=== PATIENT | female | born 1955 | race Caucasian/White ===

== ENCOUNTER 2016-09-20 02:15 | Observation (INO) | payer OTHER ==
--- NOTE | 2016-09-20 02:25 | EDPHY ---
H & P HPI/ROS: HPI CHIEF COMPLAINT: Fall HISTORY OF PRESENT ILLNESS: this patient very pleasant 61-year-old female, she is visiting from [facility] she arrived here on she is staying at [employer], she was walking down the stairs to go get her book to go to bed, she did have 3 glasses of wine this evening, she slipped on the 4th or 5th stair from the bottom she was not wearing shoes that were hardwood stairs, she remember slipping and she remember falling she had head strike. Her witnessed this she they do say brief episode of LOC. She was slightly confused upon waking according to her . She has no chest pain or shortness of breath she denies syncope but does endorse LOC. She remembers the entire event. She denies biting her tongue bowel bladder constant was no seizure activity. She is not on any blood thinners. Past Medical History: Hypertension, anxiety, depression, sleep apnea, obesity, wears 2 L of oxygen with her CPAP machine at night. Past Surgical History: No recent surgical history Social History: Endorses daily alcohol use 3-4 glasses of wine per evening, denies drugs or tobacco, is here for on vacation and a conference Family History: noncontributory ROS REVIEW OF SYSTEMS: A comprehensive 10 point review of systems is otherwise negative aside from elements mentioned in the history of present illness. Exam Constitutional appears well nontoxic, triage nursing summary reviewed, vital signs reviewed, awake/alert. Eyes normal conjunctivae and sclera, EOMI, PERRLA. HENT head/neck: there is a right occiput hematoma rather large present, no midline cervical spine pain, no scalp laceration, there is a bruise to the left maxillary cheek, otherwise atraumatic exam, moist mucus membranes, no epistaxis , neck supple/ no meningismus, no raccoon eyes. Respiratory clear to auscultation bilaterally, normal breath sounds, no respiratory distress, no wheezing. Cardiovascular chest wall: No tenderness palpation good breath sounds bilaterally, rate normal, regular rhythm, no murmur, no edema, distal pulses normal. Gastrointestinal soft, non-tender, no rebound, no guarding, normal bowel sounds, no distension, no pulsatile mass. Genitourinary no CVA tenderness. Musculoskeletal no midline vertebral tenderness, full range of motion, no calf swelling, no tenderness of extremities, no meningismus, good pulses, neurovascularly intact. Skin pink, warm, & dry, no rash, skin atraumatic. Neurologic awake, alert and oriented x 3, AAOx3, moves all 4 extremities equally, motor intact, sensory intact, CN II-XII intact, normal cerebellar, normal vision, normal speech. Psychiatric normal mood/affect. Heme/Lymph/Immune no lymphadenopathy. Differential Diagnosis: includes but is not limited to in a particular order mechanical trip and fall, alcohol intoxication, dehydration, electrolyte disturbance, closed head injury, concussion, intracranial bleed, subdural, epidural, subarachnoid traumatic, skull fracture, cervical spine injury, rib fractures Medical Decision Making: plan for this patient be placed on full quality improvement specialist she will have an IV established will obtain blood work including electrolytes alcohol level, she will have a CT scan of her head, neck and a chest x-ray. We will re-evaluate. Re-evaluation: CT scan of the head without IV contrast. The results of the study are traumatic subarachnoid see no skull fracture, significant scalp hematoma. The study was read by Dr. Fu I viewed the images myself on the PACS system. CT scan of the cervical spine without IV contrast The results of the study are negative for acute fracture. The study was read by Dr. Fu I viewed the images myself on the PACS system. ED x-ray chest one view: Negative for acute cardiopulmonary disease. Specifically no evidence acute fracture or trauma. 0305: Spoke with Dr. Worley with Neurosurgery I did explain that this patient has a subarachnoid bleed traumatic. No skull fracture. Neurological exam at this time is GCS 15 she is alert and orient x4, no focal neuro deficit. I reviewed her CT scan of her head, CT scan of her cervical spine she has no midline cervical spine pain. x-ray of her chest is unremarkable. Foot x-ray is pending at this time. She is not on any anticoagulation. Dr. Worley would like this patient admitted to the ICU/SDU. Does not recommend anti seizure medication at this time. Given that she is mentating appropriately neurologically intact will watch closely in ICU step-down. And if mentation changes her neurological status changes may need repeat imaging. Critical Care: Total Critical Care Time Spent Managing this Patient: 65 Minutes. This time was spent Exclusively with this patient. This Care was exclusive of procedures. The Organ System/life at risk was neurological This Patient was in Critical Condition because traumatic subarachnoid Source: Patient, EMS Constitutional: Initial Vital Signs Temperature (C) 36.8 C 09/20/16 02:15 Heart Rate 72 09/20/16 02:15 Respiratory Rate 16 09/20/16 02:15 Blood Pressure 144/76 H 09/20/16 02:15 O2 Sat (%) 84 L 09/20/16 02:15 O2 Delivery Mode Nasal Cannula O2 (L/minute) 2 Allergies/Adverse Reactions: buspirone [From BuSpar] Allergy (Verified 09/20/16 02:27) Home Medications: Medication Instructions Recorded Beclomethasone Qvar 80 [Qvar 80 2 puffs IH BID 09/20/16 (*)] Escitalopram Oxalate [Lexapro 10 10 mg PO DAILY 09/20/16 MG] Levalbuterol Inhaler [Xopenex Hfa 1 puffs IH TID PRN 09/20/16 Inhaler (*)] Meclizine HCl [Meclizine HCl 12.5 25 mg PO Q8 PRN 09/20/16 mg (*)] Multivitamins [Multivitamin (*)] 1 each PO DAILY 09/20/16 Olmesartan Medoxomil [Benicar 5 mg 10 mg PO DAILY 09/20/16 (*)] Omeprazole 20 mg PO DAILY 09/20/16 Medical Decision Making - Data Points Laboratory Results: Laboratory Results 09/20/16 02:15 09/20/16 02:15 Medications Given: Discontinued Medications Acetaminophen (Tylenol) 1,000 mg PO EDNOW ONE Stop: 09/20/16 02:27 Last Admin: 09/20/16 02:31 Dose: Not Given Beclomethasone Dipropionate (Qvar 80) 2 puffs IH BID [facility] Stop: 03/19/17 20:59 Last Admin: 09/21/16 08:37 Dose: 2 puffs Escitalopram Oxalate (Lexapro) 10 mg PO DAILY [facility] Stop: 03/20/17 08:59 Last Admin: 09/21/16 08:34 Dose: 10 mg Sodium Chloride (Ns) 1,000 mls @ 0 mls/hr IV ONCE ONE PRN Reason: Wide Open Stop: 09/20/16 02:27 Last Admin: 09/20/16 02:48 Dose: 1,000 mls Meclizine HCl (Meclizine Hcl) 25 mg PO BID PRN PRN Reason: Dizziness Stop: 03/19/17 13:42 Last Admin: 09/21/16 08:34 Dose: 25 mg Miscellaneous Medication (Omeprazole [Omeprazole]) 20 mg PO DAILY [facility] Stop: 03/20/17 08:59 Last Admin: 09/21/16 08:36 Dose: 1 cap Olmesartan (Benicar) 10 mg PO DAILY [facility] Stop: 03/20/17 08:59 Last Admin: 09/21/16 08:37 Dose: 10 mg Polyethylene Glycol (Miralax) 17 gm PO BID PRN PRN Reason: Constipation Stop: 03/20/17 09:10 Last Admin: 09/21/16 09:48 Dose: 17 gm Departure - Departure Disposition: [facility] Clinical Impression: Traumatic subarachnoid hemorrhage Qualifiers: Encounter type: initial encounter Loss of consciousness presence/duration: with LOC of unspecified duration Qualified Code(s): S06.6X9A - Traumatic subarachnoid hemorrhage with loss of consciousness of unspecified duration, initial encounter Condition: Good
[2016-09-20] MEDS ORDERED: NS 1,000 ML IV ONE (02:26)
[2016-09-20] MEDS ORDERED: ACETAMINOPHEN 500 MG TAB PO ONE (02:26)
[2016-09-20 02:44] LABS: INR 0.98 (0.83-1.16); PROTIME(PATIENT) 12.9 SEC (12.0-15.0)
[2016-09-20 02:45] LABS: APTT 27.5 SEC (23.0-38.0)
[2016-09-20 02:47] LABS: ANION GAP 11 mEq/L (8-16); CARBON DIOXIDE 26 mEq/l (22-31); CHLORIDE 104 mEq/L (97-110); CREATININE 0.6 mg/dL (0.6-1.0); ETHANOL SERUM 14 mg/dL (0-10); GLOMERULAR FILTRATION RATE > 60; GLUCOSE 123 mg/dL (70-100); POTASSIUM 4.1 mEq/L (3.5-5.2); SODIUM 141 mEq/L (134-144)
[2016-09-20 02:50] LABS: % IMMATURE GRANULYOCYTES 0.8 % (0.0-1.1); ABSOLUTE IMMATURE GRANULOCYTES 0.06 10^3/uL (0.00-0.10); ADD DIFF? NO; ADD MORPH? NO; ADD SCAN? NO; ATYPICAL LYMPHOCYTE FLAG 0 (0-99); FRAGMENT RBC FLAG 0 (0-99); HEMATOCRIT 43.2 % (38.0-47.0); HEMOGLOBIN 14.7 g/dL (12.6-16.3); LEFT SHIFT FLG 0 (0-99); LIPEMIA HEMOLYSIS FLAG 90 (0-99); MEAN CELL HEMOGLOBIN 35.5 pg (27.9-34.1); MEAN CELL VOLUME 104.3 fL (81.5-99.8); MEAN PLATELET VOLUME 10.3 fL (8.7-11.7); PLATELET CLUMPS FLAG 20 (0-99); PLATELET COUNT 215 10^3/uL (150-400); RED BLOOD CELL COUNT 4.14 10^6/uL (4.18-5.33); RED CELL DISTRIBUTION WIDTH 12.3 % (11.5-15.2)
[2016-09-20] MEDS ORDERED: HYDROCODONE/APAP 5/325 TAB PO PRN (06:26)
[2016-09-20] MEDS ORDERED: ACETAMINOPHEN 325 MG TAB PO PRN (06:26)
[2016-09-20] MEDS ORDERED: HYDROmorphONE/DILAUDID 1 MG/ML SYR IVP PRN (06:26)
[2016-09-20] MEDS ORDERED: NS 1,000 ML IV SCH (06:30)
--- NOTE | 2016-09-20 09:12 | GHP ---
[f rep st] HISTORY AND PHYSICAL DATE OF ADMISSION: 09/20/2016 CHIEF COMPLAINT: Fall. HISTORY OF PRESENT ILLNESS: This is a 61-year-old female who is here from [place] with her , and who tripped and fell down the stairs. This was not witnessed, but her heard her fall. She says that she does not recall the fall, and her says that she was groggy at the bottom of the stairs. She came to the emergency department for evaluation, where she was found to have sca ttered traumatic subarachnoid hemorrhage. At this point in time, she denies any headache. She did say that she vomited once immediately after the injury and was perseverating, but this has all clear ed. She denies any headache, nausea, vomiting. At this point in time, she has some mild dizziness when she turns her head to the right or the left, but this is clearing. She denies any neck pain, n umbness, tingling or weakness, vision changes. She denies any other complaints. PAST MEDICAL HISTORY: Positive for GERD, hypertension, sleep apnea, depression, and asthma. PAST SURGICAL HISTORY: She denies. FAMILY HISTORY: Her mother is from a "brain bleed." Otherwise noncontributory. SOCIAL HISTORY: She does not smoke. She does not use illicit drugs. She does drink approximately 1 bottle of wine a night, although last night she had 3 glasses of wine. ALLERGIES: Buspiron. MEDICATIONS: Include: 1. Xopenex. 2. Omeprazole 20 mg p.o. 3. Losartan 100 mg p.o. 4. Lexapro 10 mg p.o. 5. Qvar 8.7 g IH. 6. Aspirin 81 mg p.o. 7. Albuterol 200 mcg inhalation. REVIEW OF SYSTEMS: Complete 10-system review of systems performed by myself was negative, except as stated above. PHYSICAL EXAM: VITAL SIGNS: Blood pressure is 117/63, heart rate is 62, respiratory rate is 19, sa turating 93% on room air. Temp is 37.4. GENERAL: On physical exam, she is alert and oriented x3. NEUROLOGIC: Pupils are equal, round, reactive to light and accommodation. Extraocular muscles are intact. There is no facial asymmetry or tongue deviation. Sensation is intact V1, V2, V3 distribu tions of the 5th cranial nerve bilaterally. She does have a little ecchymosis on her left cheek. S trength is 5/5 to bilateral deltoids, biceps, triceps, wrist flexors, wrist extensors, hand intrinsi cs, iliopsoas, quadriceps, hamstrings, dorsiflexors, plantar flexors, EHL. DTRs are +2/4 biceps, br achioradialis, patellar and Achilles. LABORATORY DATA: White blood cell count 7.31, hemoglobin 14.7, hematocrit 43.2, platelets are 215. PT is 12.9, INR 0.9, APTT 27.5. Sodium is 141, potassium 4.1, chloride 104, CO2 26, BUN 11, creati nine 0.6, glucose 123. Alcohol was 14. CT of the head reveals scattered subarachnoid hemorrhage th roughout, primarily in the frontal region along the parafalcine region and in the prepontine cistern , consistent with scattered traumatic subarachnoid hemorrhage. No intraparenchymal hemorrhage and n o skull fractures or bony abnormalities. CT of the cervical spine reveals multilevel degenerative d isease without obvious fracture or malalignment. IMPRESSION AND PLAN: This is a 61-year-old female who fell down the stairs, sustaining a closed hea d injury with scattered traumatic subarachnoid hemorrhage. At this point in time, she remained a GC S of 15 with no complaints, and we will observe her in the step-down unit overnight and likely disch arge her tomorrow. There is no further indication for a CT scan in this patient, unless she clinica lly declines. Would not place her on any antiepileptics. Would continue with q.2 hour neuro checks overnight. PT, OT, and speech can see and evaluate her today, although I think that she will pass with flying colors and likely be discharged in the morning. I discussed this with the patient, and she was pleased with this plan. /[id number]/MODL
--- NOTE | 2016-09-20 14:43 | GHP ---
[f rep st] HISTORY AND PHYSICAL DATE OF ADMISSION: 09/20/2016 REFERRING PHYSICIAN: Maribel Worley DO REASON FOR REFERRAL: Evaluation and management of knee pain, sleep apnea, dizziness, status post a fall with subarachnoid hemorrhage. HISTORY: The patient is a 61-year-old woman who was visiting from [place] who early this morning sl ipped and fell down some stairs at the house she was renting. Her heard her fall and came t o her aid where he found her groggy. He is not sure if she might have had a brief loss of conscious ness. There was no seizure. She was brought to the emergency department where she was alert and or iented. CT scan was done and showed a subarachnoid hemorrhage. She has been admitted to the ICU fo r observation. She had taken a short walk in the room, but felt quite dizzy with that so is back in bed. She has some dizziness with head movement. She denies any shortness of breath or chest pain. She has some bilateral knee pain. Pain in the left is chronic with some acute worsening after the fall, and the pain in her right knee is on the medial side. PAST MEDICAL HISTORY: 1. Hypertension. 2. Sleep apnea. The patient is being treated with CPAP and oxygen which she brought on the trip . She is followed by a sleep specialist in [place]. She reports good control of her symptoms . 3. Gastroesophageal reflux. 4. Asthma. MEDICATIONS: Xopenex, omeprazole, losartan, Lexapro, QVAR, aspirin, albuterol. ALLERGIES: Buspirone. SOCIAL HISTORY: The patient does not smoke. She drinks several alcoholic beverages a night. FAMILY HISTORY: Positive for a "brain bleed" in her mother. REVIEW OF SYSTEMS: A 10-point review of systems adds nothing to the history of present illness. PHYSICAL EXAMINATION: GENERAL: The patient is awake, alert, in no acute distress. VITAL SIGNS: B lood pressure is 116/62, with a pulse of 69. She is afebrile. Oxygen saturations are 88% on room a ir. HEENT: She has ecchymoses on her left cheek. She has a laceration on her right upper scalp. NECK: No adenopathy. Trachea is midline. CHEST: Clear to auscultation. CARDIAC: Regular rate a nd rhythm without murmur. ABDOMEN: Soft, nontender. Bowel sounds are present. EXTREMITIES: No c lubbing, cyanosis, or edema. NEURO: The patient is awake, alert, and grossly intact. She endorses some dizziness when she turns her head from side to side. MUSCULOSKELETAL: The patient has some te nderness along the right medial knee that is worse with lateral pressure on the ankle. On the left, she has a little bit of tenderness along the anterolateral joint line. There is no bruising. LABORATORY DATA: CBC is remarkable only for an MCV of 104.3. Chemistry group was normal. Alcohol level was 14. IMAGING: CT scan of the head demonstrates some small areas of subarachnoid hemorrhage with no shift . Images were reviewed. Chest x-ray is unremarkable. Images reviewed. ASSESSMENT: 1. Status post fall with subarachnoid hemorrhage. This apparently was a mechanical fall without ev idence of loss of consciousness prior to the fall. It is possible there may have been a period of l oss of consciousness or at least confusion just for a few minutes after the fall. She is currently neurologically stable with small bleeds. 2. Obstructive sleep apnea. The severity of this is unknown. The patient is treated with CPAP and oxygen, and followed by a sleep specialist. She is continuing therapy. She has been on therapy du ring this trip and also has her machine here tonight to use while in the hospital. 3. Dizziness. This is likely a result of the head trauma. She has had no nausea or vomiting. 4. Obesity. 5. Mild hypoxemia. This is likely multifactorial with obesity, the altitude, and perhaps some mild asthma all contributing. 6. Macrocytosis. The patient has a normal hemoglobin. She does have significant alcohol intake an d this could be related to that. 7. Knee pain. On the right this appears to be a mild MCL strain. On the left this could be a cont usion, but the degree of symptoms argue against a fracture. RECOMMENDATIONS: 1. Continue to use CPAP with oxygen with sleep. 2. I do not think that x-rays of the knees are warranted at this point. If she has significant marizol n while trying to ambulate, x-rays could then be done. 3. Meclizine for the patient's vertigo. /[id number]/MODL
[2016-09-20] MEDS: MECLIZINE HCL 25 MG TAB PO PRN ×2 (14:53→22:11)
[2016-09-20] MEDS: BECLOMETHASONE QVAR 80 MDI IH SCH (20:53)
[2016-09-21 05:29] VITALS: RESP 16
[2016-09-21 07:31] VITALS: BP 108/68; PULSE 67; TEMP 97.9; O2SAT 99
[2016-09-21] MEDS: MECLIZINE HCL 25 MG TAB PO PRN (08:34)
[2016-09-21] MEDS: BECLOMETHASONE QVAR 80 MDI IH SCH (08:37)
--- NOTE | 2016-09-21 08:47 | NEUSURGPN ---
Assessment/Plan: 61y/o female 61 female scattered tsah. neurology and intact. - Seen with Dr Worley - PT/OT -Optimize pain management -Dispo planning for later today. -Please notify NS with any change in neuro/motor exam Subjective: Mild dizziness. Denies any headache, vomiting. Objective: NAD A&Ox3 CN II-XII grossly intact. MAEx4 5/5 and equal in BUE and BLE - Physician Patient Seen by : [facility] Physical Exam - Vitals, I&O, Labs I and O 09/20/16 09/21/16 09/22/16 05:59 05:59 05:59 Intake Total 1010 1460 Balance 1010 1460 Weight 103.6 kg 103.6 kg Intake: Oral (ml) 10 1460 IV Infused (ml) 1000 Other: Number of Voids Toilet 1 2 Vital Signs Temp Pulse Resp BP Pulse Ox 36.6 C 67 16 108/68 99 09/21/16 07:26 09/21/16 07:26 09/21/16 07:26 09/21/16 07:26 09/21/16 07:26 ICD10 Worksheet Patient Problems: Problems Problem Status Onset Traumatic subarachnoid hemorrhage Acute
[2016-09-21] MEDS ORDERED: OLMESARTAN MEDOXOMIL 5 MG TAB PO SCH (09:00)
[2016-09-21] MEDS ORDERED: NON-FORMULARY NEW DRUG (Omeprazole [Omeprazole] 20 MG) PO SCH (09:00)
[2016-09-21] MEDS ORDERED: ESCITALOPRAM OXALATE 10 MG TAB PO SCH (09:00)
[2016-09-21] MEDS ORDERED: POLYETHYLENE GLYCOL 3350 17 GM PKT PO PRN (09:11)
== END 2016-09-21 13:17 | disposition home or self-care (01) ==
LOC: INTOOBSV 03:02 → F2N 03:43
PROVIDERS: ADMIT Neurological Surgery; ATTEND Neurological Surgery
DX: S06.6X9A Traumatic subarachnoid hemorrhage with loss of consciousness of unspecified duration, initial encounter (principal); W10.8XXA Fall (on) (from) other stairs and steps, initial encounter; Y92.049 Unspecified place in boarding-house as the place of occurrence of the external cause; I10 Essential (primary) hypertension; F41.8 Other specified anxiety disorders; E66.9 Obesity, unspecified; G47.33 Obstructive sleep apnea (adult) (pediatric); K21.9 Gastro-esophageal reflux disease without esophagitis; J45.909 Unspecified asthma, uncomplicated; M25.561 Pain in right knee; R40.2411 Glasgow coma scale score 13-15, in the field [EMT or ambulance]; M47.892 Other spondylosis, cervical region
CPT/HCPCS: 70450; 71020; 72125; 73630; 92523; 96360; 97162; 97165; 99291; G0378; G0480